=== PATIENT | female | born 1995 | race Caucasian/White ===

== ENCOUNTER 2017-08-13 00:29 | Emergency (ER) | payer BC ==
[~2017-08-13 00:29] MED LIST: ALB17R INH; IBU800 PO; LOR5/325 PO; MULT1CAP41 PO; NAP250 PO; RAN150 PO; RANI-324 PO
--- NOTE | 2017-08-13 00:33 | ER Report ---
History and Physical Time Seen By MD: 00:32 HPI/ROS CHIEF COMPLAINT: Heavy vaginal bleeding and abdominal cramping HISTORY OF PRESENT ILLNESS: 22-year-old female presents ambulatory to the ER after vaginal spotting for one week. She's had severe vaginal cramping and heavy clot passage over the last several hours. This prompted her to come to the ER for evaluation. Patient states she had a miscarriage 3 months ago in May. She is being followed by Dr. Panchal. She notes nausea but no vomiting. She denies dysuria, frequency or hematuria. REVIEW OF SYSTEMS: Respiratory: No cough, no dyspnea. Cardiovascular: No chest pain, no palpitations. Gastrointestinal: As above Musculoskeletal: No back pain. Allergies: Coded Allergies: insect venom (Verified Adverse Reaction, Intermediate, HIVES, 08/13/17) Home Meds Active Scripts Oxycodone Hcl/Acetaminophen (PERCOCET 5-325 MG TABLET) 1 Each Tablet, 1 EACH PO Q4-6H Y for PAIN, #12 Prov:GEORGETTE CASTRO DO 08/13/17 Promethazine Hcl (PROMETHAZINE HCL) 25 Mg Tablet, 25 MG PO Q4H Y for NAUSEA/ VOMITING, #14 TAB Prov:GEORGETTE CASTRO DO 08/13/17 Reported Medications Ranitidine Hcl (ZANTAC) 150 Mg Tablet, 150 MG PO BID, TAB 08/13/17 Reviewed Nurses Notes: Yes Old Medical Records Reviewed: Yes Hx Smoking: Yes Smoking Status: Current: Every Day Smoker Hx Substance Use Disorder: No Hx Alcohol Use: No Constitutional Vital Sign - Last 24 Hours 08/13/17 08/13/17 08/13/17 08/13/17 00:29 00:32 00:34 00:40 Temp 99.5 Pulse ??? 66 Resp 17 B/P (MAP) 136/89 (105) 136/89 137/103 (114) Pulse Ox 98 O2 Delivery Room Air 08/13/17 08/13/17 08/13/17 08/13/17 01:00 01:06 01:30 01:35 Pulse 66 B/P (MAP) 107/94 (98) 129/63 (85) O2 Flow Rate 1.0 08/13/17 08/13/17 02:00 02:05 Pulse 69 B/P (MAP) 126/69 (88) Pulse Ox 95 Physical Exam Vital signs stable, low-grade temp 99.5, pulse ox normal General Appearance: The patient is alert, has no immediate need for airway protection and no current signs of toxicity. Slightly pale appearing, skin warm and dry, mild distress HEENT: Pupils equal and round no injection. Oropharynx with mois mucous membranes, no erythema Respiratory: Chest is non tender, lungs are clear to auscultation. Cardiac: regular rate and rhythm Gastrointestinal: Abdomen is soft, mild suprapubic tenderness, no masses, bowel sounds normal. Musculoskeletal: Neck: Neck is supple and non tender. Extremities have full range of motion and are non tender. Skin: No rashes or lesions. DIFFERENTIAL DIAGNOSIS: After history and physical exam differential diagnosis was considered for vaginal bleeding including but not limited to ectopic , menses, miscarriage, and dysfunctional uterine bleeding. Medical Decision Making Data Points Result Diagram: 08/13/17 0038 08/13/17 0038 Laboratory Hematology Test 08/13/17 00:38 08/13/17 00:48 Red Blood Count 4.65 M/uL (4.17-5.56) Mean Corpuscular Volume 78.2 fL (80.0-96.0) Mean Corpuscular Hemoglobin 25.9 pg (26.0-33.0) Mean Corpuscular Hemoglobin Concent 33.1 g/dL (32.0-36.0) Red Cell Distribution Width 15.7 % (11.5-14.5) Mean Platelet Volume 7.9 fL (7.2-11.1) Neutrophils (%) (Auto) 47.3 % (39.4-72.5) Lymphocytes (%) (Auto) 42.7 % (17.6-49.6) Monocytes (%) (Auto) 7.7 % (4.1-12.4) Eosinophils (%) (Auto) 1.4 % (0.4-6.7) Basophils (%) (Auto) 0.9 % (0.3-1.4) Nucleated RBC Relative Count (auto) 0.0 /100WBC Neutrophils # (Auto) 5.7 K/uL (2.0-7.4) Lymphocytes # (Auto) 5.1 K/uL (1.3-3.6) Monocytes # (Auto) 0.9 K/uL (0.3-1.0) Eosinophils # (Auto) 0.2 K/uL (0.0-0.5) Basophils # (Auto) 0.1 K/uL (0.0-0.1) Nucleated RBC Absolute Count (auto) 0.00 K/uL Prothrombin Time 12.8 seconds (12.0-14.4) Prothromb Time International Ratio 0.96 Activated Partial Thromboplast Time 27 seconds (23-35) Sodium Level 145 mmol/L (137-145) Potassium Level 3.8 mmol/L (3.5-5.0) Chloride Level 108 mmol/L (98-107) Carbon Dioxide Level 21 mmol/L (22-31) Blood Urea Nitrogen 11 mg/dl (7-18) Creatinine 1.00 mg/dl (0.52-1.04) Glomerular Filtration Rate Calc > 60.0 Random Glucose 102 mg/dl (75-110) Calcium Level 9.5 mg/dl (8.4-10.2) Total Bilirubin 0.2 mg/dl (0.2-1.3) Aspartate Amino Transf (AST/SGOT) 25 U/L (0-35) Alanine Aminotransferase (ALT/SGPT) 25 U/L (0-56) Alkaline Phosphatase 87 U/L (0-126) Total Protein 7.4 gm/dl (6.3-8.2) Albumin 4.0 g/dl (3.5-5.0) Human Chorionic Gonadotropin, Qual Negative (NEGATIVE) Urine Color Yellow Urine Clarity Slightly-cloudy Urine pH 5.0 pH (4.8-9.5) Urine Specific [place] 1.016 Urine Protein 30 mg/dL (NEGATIVE) Urine Glucose (UA) Negative mg/dL (NEGATIVE) Urine Ketones Negative mg/dL (NEGATIVE) Urine Blood Large (NEGATIVE) Urine Nitrite Negative (NEGATIVE) Urine Bilirubin Negative (NEGATIVE) Urine Urobilinogen Negative mg/dL (0.2-1.9) Urine Leukocyte Esterase Negative (NEGATIVE) Urine RBC 496 /HPF (0-2/HPF) Urine WBC None /HPF (0-5/HPF) Urine Squamous Epithelial Cells Few /LPF (</=FEW) Urine Bacteria Negative /HPF (NONE-FEW) Urine Mucus Few /HPF (NONE-FEW) Chemistry Test 08/13/17 00:38 08/13/17 00:48 White Blood Count 12.0 k/uL (4.5-11.0) Red Blood Count 4.65 M/uL (4.17-5.56) Hemoglobin 12.0 g/dL (12.0-16.0) Hematocrit 36.4 % (34.0-47.0) Mean Corpuscular Volume 78.2 fL (80.0-96.0) Mean Corpuscular Hemoglobin 25.9 pg (26.0-33.0) Mean Corpuscular Hemoglobin Concent 33.1 g/dL (32.0-36.0) Red Cell Distribution Width 15.7 % (11.5-14.5) Platelet Count 361 K/uL (150-450) Mean Platelet Volume 7.9 fL (7.2-11.1) Neutrophils (%) (Auto) 47.3 % (39.4-72.5) Lymphocytes (%) (Auto) 42.7 % (17.6-49.6) Monocytes (%) (Auto) 7.7 % (4.1-12.4) Eosinophils (%) (Auto) 1.4 % (0.4-6.7) Basophils (%) (Auto) 0.9 % (0.3-1.4) Nucleated RBC Relative Count (auto) 0.0 /100WBC Neutrophils # (Auto) 5.7 K/uL (2.0-7.4) Lymphocytes # (Auto) 5.1 K/uL (1.3-3.6) Monocytes # (Auto) 0.9 K/uL (0.3-1.0) Eosinophils # (Auto) 0.2 K/uL (0.0-0.5) Basophils # (Auto) 0.1 K/uL (0.0-0.1) Nucleated RBC Absolute Count (auto) 0.00 K/uL Prothrombin Time 12.8 seconds (12.0-14.4) Prothromb Time International Ratio 0.96 Activated Partial Thromboplast Time 27 seconds (23-35) Glomerular Filtration Rate Calc > 60.0 Calcium Level 9.5 mg/dl (8.4-10.2) Total Bilirubin 0.2 mg/dl (0.2-1.3) Aspartate Amino Transf (AST/SGOT) 25 U/L (0-35) Alanine Aminotransferase (ALT/SGPT) 25 U/L (0-56) Alkaline Phosphatase 87 U/L (0-126) Total Protein 7.4 gm/dl (6.3-8.2) Albumin 4.0 g/dl (3.5-5.0) Human Chorionic Gonadotropin, Qual Negative (NEGATIVE) Urine Color Yellow Urine Clarity Slightly-cloudy Urine pH 5.0 pH (4.8-9.5) Urine Specific [place] 1.016 Urine Protein 30 mg/dL (NEGATIVE) Urine Glucose (UA) Negative mg/dL (NEGATIVE) Urine Ketones Negative mg/dL (NEGATIVE) Urine Blood Large (NEGATIVE) Urine Nitrite Negative (NEGATIVE) Urine Bilirubin Negative (NEGATIVE) Urine Urobilinogen Negative mg/dL (0.2-1.9) Urine Leukocyte Esterase Negative (NEGATIVE) Urine RBC 496 /HPF (0-2/HPF) Urine WBC None /HPF (0-5/HPF) Urine Squamous Epithelial Cells Few /LPF (</=FEW) Urine Bacteria Negative /HPF (NONE-FEW) Urine Mucus Few /HPF (NONE-FEW) Coagulation Test 08/13/17 00:38 Prothrombin Time 12.8 seconds Prothromb Time International Ratio 0.96 Activated Partial Thromboplast Time 27 seconds Urinalysis Test 08/13/17 00:48 Urine Color Yellow Urine Clarity Slightly-cloudy Urine pH 5.0 pH (4.8-9.5) Urine Specific [place] 1.016 Urine Protein 30 mg/dL (NEGATIVE) Urine Glucose (UA) Negative mg/dL (NEGATIVE) Urine Ketones Negative mg/dL (NEGATIVE) Urine Blood Large (NEGATIVE) Urine Nitrite Negative (NEGATIVE) Urine Bilirubin Negative (NEGATIVE) Urine Urobilinogen Negative mg/dL (0.2-1.9) Urine Leukocyte Esterase Negative (NEGATIVE) Urine RBC 496 /HPF (0-2/HPF) Urine WBC None /HPF (0-5/HPF) Urine Squamous Epithelial Cells Few /LPF (</=FEW) Urine Bacteria Negative /HPF (NONE-FEW) Urine Mucus Few /HPF (NONE-FEW) ED Course/Re-evaluation Clinical Indication for ER IV: Hydration, IV Access ED Course Patient was admitted to an examination room. H&P was done. The differential diagnoses was considered. On clinical examination. Patient having heavy vaginal spotting clots. She is unsure whether she is or not. She did sustain a miscarriage 3 months ago. She has been sexually active. Patient's treated with IV fluid hydration. Her vitals are stable. There is no tachycardia or hypotension. She is a low-grade fever. She denies dysuria. Her H&H is stable. Her white counts normal. Her test returns negative. Patient's medicated with fentanyl and Toradol for pain relief. She' ll be discharged home on Percocet and Phenergan. She is advised to follow-up with Dr. Panchal for evaluation and treatment of dysfunctional uterine bleeding. Decision to Disposition Date: Aug 13, 2017 Decision to Disposition Time: 01:18 Depart Departure Latest Vital Signs Vital Signs Date Time Temp Pulse Resp B/P (MAP) Pulse Ox O2 Delivery O2 Flow Rate FiO2 08/13/17 02:05 69 95 08/13/17 02:00 126/69 (88) 08/13/17 01:06 1.0 08/13/17 00:34 99.5 17 Room Air Impression: Primary Impression: Dysfunctional uterine bleeding Condition: Improved Disposition: HOME OR SELF-CARE New Scripts Oxycodone Hcl/Acetaminophen (PERCOCET 5-325 MG TABLET) 1 Each Tablet 1 EACH PO Q4-6H Y for PAIN, #12 Prov: GEORGETTE CASTRO DO 08/13/17 Promethazine Hcl (PROMETHAZINE HCL) 25 Mg Tablet 25 MG PO Q4H Y for NAUSEA/VOMITING, #14 TAB Prov: GEORGETTE CASTRO DO 08/13/17 Patient Instructions: Dysfunctional Uterine Bleeding (ED) Additional Instructions: Take ibuprofen 200 mg 3 tablets 3 times a day with food Follow-up with [facility] [employer] Dr Panchal within one week GEORGETTE CASTRO DO Aug 13, 2017 00:33
[2017-08-13] MEDS ORDERED: NS(*) 0.9% 1000 ML BAG 1,000 ML IV ONE (00:42)
[2017-08-13] MEDS ORDERED: ONDANSETRON 4 MG/2 ML VIAL IVP ONE (00:45)
[2017-08-13] MEDS ORDERED: fentaNYL CITR 100 MCG/2 ML AMP IVP ONE ×2 (00:45→01:10)
[2017-08-13 00:53] LABS: PLATELET COUNT, AUTOMATED 361 K/uL (150-450)
[2017-08-13] MEDS ORDERED: RANI-324 PO (00:54)
[2017-08-13 00:59] LABS: INR 0.96
[2017-08-13] MEDS ORDERED: PROM-110 PO (01:21)
[2017-08-13] MEDS ORDERED: OXYC-865 PO (01:21)
[2017-08-13] MEDS ORDERED: PROMETHAZINE HCL 25 MG TAB TH 2 TAB/BOTTLE PO ONE (01:30)
[2017-08-13] MEDS ORDERED: oxyCODONE/ACETAMIN 5/325MG TH 2 TAB/BOTTLE PO ONE (01:30)
[2017-08-13] MEDS ORDERED: KETOROLAC 30 MG/ML VIAL IVP ONE (01:45)
[2017-08-13 02:00] VITALS: BP 126/69
== END 2017-08-13 02:12 | disposition home or self-care (01) ==
LOC: ER 00:42
DX: N93.8 Other specified abnormal uterine and vaginal bleeding (principal)
CPT/HCPCS: 81001; 84703; 85025; 85610; 85730; 86850; 86900; 86901; 99284; J1885; J2405; J3010; J7030; 82040; 82247; 82310; 82374; 82435; 82565; 82947; 84075; 84132; 84155; 84295; 84450; 84460; 84520; 96361; 96374; 96375

== ENCOUNTER 2017-10-26 15:11 | Emergency (ER) | payer BC ==
[~2017-10-26 15:11] MED LIST changes: +OXYC-865 PO; +PROM-110 PO; -RANI-324 PO; +RANI-366 PO
[2017-10-26] MEDS ORDERED: PREN-127 PO (15:21)
[2017-10-26] MEDS ORDERED: DOXY25TA19 (15:21)
[2017-10-26] MEDS ORDERED: PYRI200T (15:21)
[2017-10-26] MEDS ORDERED: NS(*) 0.9% 1000 ML BAG 1,000 ML IV ONE ×2 (15:30→16:25)
[2017-10-26] MEDS ORDERED: ONDANSETRON 4 MG/2 ML VIAL IVP ONE (15:35)
[2017-10-26 15:40] LABS: PLATELET COUNT, AUTOMATED 397 K/uL (150-450)
--- NOTE | 2017-10-26 15:45 | ER Report ---
History and Physical Time Seen By MD: 15:25 Hx. of Stated Complaint: PT IS LUBNA IS 7 WEEKS GEST. STARTED VOMITING ABOUT 7 DAYS AGO, UNABLE TO KEEP FLUIDS DOWN. DX WITH HYPEREMESIS GRAVIDARUM AT CLINIC AND SENT TO ER FOR HYDRATION HPI/ROS CHIEF COMPLAINT: Hyperemesis HISTORY OF PRESENT ILLNESS: 22-year-old female G2 para 06 week AB spontaneous comes emergency Department 7 weeks currently gravid with hyperemesis gravidarum his last time she was able to hold things down without emesis was 34 days ago she states that [facility] unable to obtain IV for dehydration and rehydration so comes emergency Department abdominal pain or vaginal bleeding or discharge no additional complaints noted REVIEW OF SYSTEMS: Respiratory: No cough, no dyspnea. Cardiovascular: No chest pain, no palpitations. Gastrointestinal: Vomiting no abdominal pain Musculoskeletal: No back pain. Remainder of the 14 system rev: Yes Allergies: Coded Allergies: insect venom (Verified Adverse Reaction, Intermediate, HIVES, 10/26/17) Home Meds Reported Medications Pyridoxine HCl (Vitamin B6) (B-6) 200 Mg Tablet.er 10/26/17 Doxylamine Succinate (Unisom) 25 Mg Tablet 10/26/17 Vits W-Ca,Fe,Fa(<1MG) ( VITAMINS) 1 Each Tablet, 1 EACH PO DAILY, TAB 10/26/17 Ranitidine Hcl (ZANTAC) 150 Mg Tablet, 150 MG PO BID, TAB 08/13/17 Discontinued Scripts Oxycodone Hcl/Acetaminophen (PERCOCET 5-325 MG TABLET) 1 Each Tablet, 1 EACH PO Q4-6H Y for PAIN, #12 Prov:GEORGETTE CASTRO DO 08/13/17 Promethazine Hcl (PROMETHAZINE HCL) 25 Mg Tablet, 25 MG PO Q4H Y for NAUSEA/ VOMITING, #14 TAB Prov:GEORGETTE CASTRO DO 08/13/17 Reviewed Nurses Notes: Yes Old Medical Records Reviewed: Yes Hx Smoking: Yes Smoking Status: Current: Every Day Smoker Hx Substance Use Disorder: No Hx Alcohol Use: No Constitutional Vital Sign - Last 24 Hours 10/26/17 15:14 Temp 97.8 Pulse 90 Resp 20 B/P (MAP) 136/82 Pulse Ox 97 O2 Delivery Room Air Physical Exam General Appearance: The patient is alert, has no immediate need for airway protection and no current signs of toxicity. [ ] Eyes: Pupils equal and round no injection. Respiratory: Chest is non tender, lungs are clear to auscultation. Cardiac: regular rate and rhythm [ ] Gastrointestinal: Abdomen is soft and non tender, no masses, bowel sounds normal. Musculoskeletal: Neck: Neck is supple and non tender. Extremities have full range of motion and are non tender. Skin: No rashes or lesions. [ ] DIFFERENTIAL DIAGNOSIS: After history and physical exam differential diagnosis was considered for hyperemesis gravidarum Medical Decision Making Data Points Result Diagram: 10/26/17 1529 10/26/17 1529 Laboratory Hematology Test 10/26/17 15:29 10/26/17 16:15 Red Blood Count 5.13 M/uL (4.17-5.56) Mean Corpuscular Volume 73.1 fL (80.0-96.0) Mean Corpuscular Hemoglobin 23.5 pg (26.0-33.0) Mean Corpuscular Hemoglobin Concent 32.1 g/dL (32.0-36.0) Red Cell Distribution Width 16.4 % (11.5-14.5) Mean Platelet Volume 7.6 fL (7.2-11.1) Neutrophils (%) (Auto) 71.7 % (39.4-72.5) Lymphocytes (%) (Auto) 21.6 % (17.6-49.6) Monocytes (%) (Auto) 6.1 % (4.1-12.4) Eosinophils (%) (Auto) 0.2 % (0.4-6.7) Basophils (%) (Auto) 0.4 % (0.3-1.4) Nucleated RBC Relative Count (auto) 0.1 /100WBC Neutrophils # (Auto) 8.6 K/uL (2.0-7.4) Lymphocytes # (Auto) 2.6 K/uL (1.3-3.6) Monocytes # (Auto) 0.7 K/uL (0.3-1.0) Eosinophils # (Auto) 0.0 K/uL (0.0-0.5) Basophils # (Auto) 0.1 K/uL (0.0-0.1) Nucleated RBC Absolute Count (auto) 0.01 K/uL Peripheral Blood Smear Y/N Sodium Level 139 mmol/L (137-145) Potassium Level 3.6 mmol/L (3.5-5.0) Chloride Level 102 mmol/L (98-107) Carbon Dioxide Level 23 mmol/L (22-31) Blood Urea Nitrogen 10 mg/dl (7-18) Creatinine 0.80 mg/dl (0.52-1.04) Glomerular Filtration Rate Calc > 60.0 Random Glucose 80 mg/dl (75-110) Calcium Level 9.9 mg/dl (8.4-10.2) Total Bilirubin 0.5 mg/dl (0.2-1.3) Aspartate Amino Transf (AST/SGOT) 22 U/L (0-35) Alanine Aminotransferase (ALT/SGPT) 25 U/L (0-56) Alkaline Phosphatase 87 U/L (0-126) Total Protein 8.1 g/dl (6.3-8.2) Albumin 4.4 g/dl (3.5-5.0) Human Chorionic Gonadotropin, Quant 855624 mIU/ml Urine Color [place] Urine Clarity Cloudy Urine pH 5.0 pH (4.8-9.5) Urine Specific [place] 1.030 Urine Protein 30 mg/dL (NEGATIVE) Urine Glucose (UA) Negative mg/dL (NEGATIVE) Urine Ketones 80 mg/dL (NEGATIVE) Urine Blood Small (NEGATIVE) Urine Nitrite Negative (NEGATIVE) Urine Bilirubin Negative (NEGATIVE) Urine Urobilinogen 2.0 mg/dL (0.2-1.9) Urine Leukocyte Esterase Large (NEGATIVE) Urine RBC 2 /HPF (0-2/HPF) Urine WBC 13 /HPF (0-5/HPF) Urine Squamous Epithelial Cells Many /LPF (</=FEW) Urine Transitional Epithelial Cells Few /LPF (NONE-FEW) Urine Amorphous Crystals Few /HPF Urine Bacteria Negative /HPF (NONE-FEW) Urine Mucus Few /HPF (NONE-FEW) Chemistry Test 10/26/17 15:29 10/26/17 16:15 White Blood Count 12.0 k/uL (4.5-11.0) Red Blood Count 5.13 M/uL (4.17-5.56) Hemoglobin 12.0 g/dL (12.0-16.0) Hematocrit 37.5 % (34.0-47.0) Mean Corpuscular Volume 73.1 fL (80.0-96.0) Mean Corpuscular Hemoglobin 23.5 pg (26.0-33.0) Mean Corpuscular Hemoglobin Concent 32.1 g/dL (32.0-36.0) Red Cell Distribution Width 16.4 % (11.5-14.5) Platelet Count 397 K/uL (150-450) Mean Platelet Volume 7.6 fL (7.2-11.1) Neutrophils (%) (Auto) 71.7 % (39.4-72.5) Lymphocytes (%) (Auto) 21.6 % (17.6-49.6) Monocytes (%) (Auto) 6.1 % (4.1-12.4) Eosinophils (%) (Auto) 0.2 % (0.4-6.7) Basophils (%) (Auto) 0.4 % (0.3-1.4) Nucleated RBC Relative Count (auto) 0.1 /100WBC Neutrophils # (Auto) 8.6 K/uL (2.0-7.4) Lymphocytes # (Auto) 2.6 K/uL (1.3-3.6) Monocytes # (Auto) 0.7 K/uL (0.3-1.0) Eosinophils # (Auto) 0.0 K/uL (0.0-0.5) Basophils # (Auto) 0.1 K/uL (0.0-0.1) Nucleated RBC Absolute Count (auto) 0.01 K/uL Peripheral Blood Smear Y/N Glomerular Filtration Rate Calc > 60.0 Calcium Level 9.9 mg/dl (8.4-10.2) Total Bilirubin 0.5 mg/dl (0.2-1.3) Aspartate Amino Transf (AST/SGOT) 22 U/L (0-35) Alanine Aminotransferase (ALT/SGPT) 25 U/L (0-56) Alkaline Phosphatase 87 U/L (0-126) Total Protein 8.1 g/dl (6.3-8.2) Albumin 4.4 g/dl (3.5-5.0) Human Chorionic Gonadotropin, Quant [id number] mIU/ml Urine Color [place] Urine Clarity Cloudy Urine pH 5.0 pH (4.8-9.5) Urine Specific [place] 1.030 Urine Protein 30 mg/dL (NEGATIVE) Urine Glucose (UA) Negative mg/dL (NEGATIVE) Urine Ketones 80 mg/dL (NEGATIVE) Urine Blood Small (NEGATIVE) Urine Nitrite Negative (NEGATIVE) Urine Bilirubin Negative (NEGATIVE) Urine Urobilinogen 2.0 mg/dL (0.2-1.9) Urine Leukocyte Esterase Large (NEGATIVE) Urine RBC 2 /HPF (0-2/HPF) Urine WBC 13 /HPF (0-5/HPF) Urine Squamous Epithelial Cells Many /LPF (</=FEW) Urine Transitional Epithelial Cells Few /LPF (NONE-FEW) Urine Amorphous Crystals Few /HPF Urine Bacteria Negative /HPF (NONE-FEW) Urine Mucus Few /HPF (NONE-FEW) Urinalysis Test 10/26/17 16:15 Urine Color [place] Urine Clarity Cloudy Urine pH 5.0 pH (4.8-9.5) Urine Specific [place] 1.030 Urine Protein 30 mg/dL (NEGATIVE) Urine Glucose (UA) Negative mg/dL (NEGATIVE) Urine Ketones 80 mg/dL (NEGATIVE) Urine Blood Small (NEGATIVE) Urine Nitrite Negative (NEGATIVE) Urine Bilirubin Negative (NEGATIVE) Urine Urobilinogen 2.0 mg/dL (0.2-1.9) Urine Leukocyte Esterase Large (NEGATIVE) Urine RBC 2 /HPF (0-2/HPF) Urine WBC 13 /HPF (0-5/HPF) Urine Squamous Epithelial Cells Many /LPF (</=FEW) Urine Transitional Epithelial Cells Few /LPF (NONE-FEW) Urine Amorphous Crystals Few /HPF Urine Bacteria Negative /HPF (NONE-FEW) Urine Mucus Few /HPF (NONE-FEW) ED Course/Re-evaluation ED Course Debra duenas 22-year-old female comes emergency room today with a complaint of hyperemesis gravidarum urinalysis does confirm elevated leukoesterase consistent with a probable UTI Dena Grissom give her 2 L of fluid will not start antiemetics as we done by her primary [employer] physician patient feels significantly better we'll follow up with primary accordingly Decision to Disposition Date: Oct 26, 2017 Decision to Disposition Time: 16:34 Depart Departure Latest Vital Signs Vital Signs Date Time Temp Pulse Resp B/P (MAP) Pulse Ox O2 Delivery O2 Flow Rate FiO2 10/26/17 15:14 97.8 90 20 136/82 97 Room Air Impression: Primary Impression: Hyperemesis gravidarum Additional Impression: UTI (urinary tract infection) Condition: Improved Disposition: HOME OR SELF-CARE Referrals: ELIAS RAMIREZ MD 5 Days New Scripts Nitrofurantoin Monohyd/M-Cryst (MACROBID 100 MG CAPSULE) 100 Mg Capsule 100 MG PO BID for 7 Days, #14 CAPSULE Prov: SAMIRA TERAN MD 10/26/17 Patient Instructions: Hyperemesis Gravidarum (DC), Urinary Tract Infection in (ED), Urinary Tract Infection in Women (DC) Problem Qualifiers SAMIRA TERAN MD Oct 26, 2017 15:45
[2017-10-26] MEDS ORDERED: NITR-105 PO (16:35)
[2017-10-26 17:00] VITALS: BP 108/69
== END 2017-10-26 17:15 | disposition home or self-care (01) ==
LOC: ER 15:12
DX: O21.0 Mild hyperemesis gravidarum (principal); O23.41 Unspecified infection of urinary tract in pregnancy, first trimester; Z3A.01 Less than 8 weeks gestation of pregnancy
CPT/HCPCS: 81001; 84702; 85025; 96361; 96374; 99284; J2405; J7030; 82040; 82247; 82310; 82374; 82435; 82565; 82947; 84075; 84132; 84155; 84295; 84450; 84460; 84520

== ENCOUNTER → 2018-05-12 | Outpatient (REF) | payer BC ==
[~2018-05-12] MED LIST changes: +DOXY25TA19; +NITR-105 PO; +PREN-127 PO; +PYRI200T
== END ==
LOC: ZZSENDIN 14:54
PROVIDERS: ATTEND Nurse Practitioner Family
DX: O42.90 Premature rupture of membranes, unspecified as to length of time between rupture and onset of labor, unspecified weeks of gestation (principal)
CPT/HCPCS: 84112

== ENCOUNTER 2018-06-09 14:50 | Inpatient (IN) | payer OTHER, BC ==
[~2018-06-09] VITALS: Ht 167.6 cm; Wt 121.1 kg
[2018-06-13] MEDS ORDERED: FAMOTIDINE(*) 20MG/50ML PREMIX 50 ML IVPB PRN (19:28)
[2018-06-13] MEDS ORDERED: METOCLOPRAMIDE 10 MG/2 ML SDV IVP PRN (19:30)
[2018-06-13] MEDS ORDERED: TERBUTALINE SULF 1 MG/ML VIAL SUBQ PRN (19:30)
[2018-06-13] MEDS ORDERED: cefOXitin/DEX(*) 2GM/50ML PREM 50 ML IVPB PRN (19:30)
[2018-06-13] MEDS ORDERED: LIDOCAINE/SOD BICARB 8.4% SYR SC PRN (19:30)
[2018-06-13] MEDS ORDERED: LIDOCAINE 1% LOCAL 300 MG/30ML INJ PRN (19:30)
[2018-06-13] MEDS ORDERED: DINOPROSTONE 10 MG INSERT PV ONE (19:30)
[2018-06-13 21:16] LABS: PLATELET COUNT, AUTOMATED 268 K/uL (150-450)
[2018-06-13] MEDS ORDERED: ZOLPIDEM TARTRATE 5 MG TAB PO ONE (21:20)
[2018-06-13] MEDS ORDERED: ONDANSETRON 4 MG/2 ML VIAL IVP PRN (21:20)
[2018-06-13] MEDS ORDERED: CALCIUM CARBONATE 500 MG CHEW PO ONE (21:20)
[2018-06-13] MEDS ORDERED: CALCIUM CARBONATE 500 MG CHEW PO PRN (21:30)
[2018-06-13] MEDS ORDERED: ZOLPIDEM TARTRATE 5 MG TAB PO PRN (21:30)
[2018-06-13] MEDS: ACETAMINOPHEN 500 MG TAB PO PRN (21:33)
[2018-06-13 21:35] VITALS: BP 125/91; Ht 167.6 cm; Wt 121.1 kg
[2018-06-13] MEDS ORDERED: OMEP-218 PO (23:13)
[2018-06-14] MEDS: ACETAMINOPHEN 500 MG TAB PO PRN (04:36)
[2018-06-14] MEDS ORDERED: OXYTOCIN 30 UNIT/D5LR 500 ML 500 ML IV SCH (08:30)
[2018-06-14] MEDS ORDERED: LIDO/EPI 2% MPF 1:200,000 20ML EPI PRN (08:35)
[2018-06-14] MEDS ORDERED: BUPIVACAINE 0.5% INJ 30ML VIAL EPI PRN (08:35)
[2018-06-14] MEDS ORDERED: fentaNYL CITR 100 MCG/2 ML AMP IT PRN (08:35)
[2018-06-14] MEDS ORDERED: LIDOCAINE/PF 2% 200MG/10ML AMP 200 MG/10 ML AMPUL EPI PRN (08:35)
[2018-06-14] MEDS ORDERED: FENTANYL/ROPIVACAINE 100 ML BAG EPI PRN (08:35)
[2018-06-14] MEDS ORDERED: BUPIVACAINE 0.25% MPF INJ EPI PRN (08:35)
[2018-06-14] MEDS: LR(*) 1000 ML BAG 1,000 ML IV PRN ×2 (09:01→12:58)
[2018-06-14] MEDS: fentaNYL CITR 100 MCG/2 ML AMP IVP PRN ×2 (09:02→12:14)
[2018-06-14] MEDS ORDERED: EPIDURAL KEYS XX PRN (12:00)
[2018-06-14] MEDS ORDERED: ePHEDrine 25 MG/5 ML DISP.SYR IVP ONE (12:07)
--- NOTE | 2018-06-14 13:48 | Anesthesia OB Pre-Anes Eval ---
History of Present Illness Anesthesia Start Date: Jun 14, 2018 Anesthesia Start Time: 12:25 OB Anesthesia Diagnosis: induction - medical EDC: Jun 09, 2018 : 2 Para: 0 Vital Signs: Vital Signs 06/13/18 21:35 Pulse 90 Resp 20 B/P (MAP) 125/91 (102) Pulse Ox 97 O2 Delivery Room Air Pain Ratin Result Diagram: 06/13/18 2102 Height (Inches): 66.00 Weight (Pounds): 267 BMI (kg/m2): 43.10 Past Medical History Medical History: obesity, other (GERD) Surgical History: noncontributory Attended Childbirth Classes?: No Hx Anesthesia Reactions: No Hx Family Anesthesia Reaction: No Current Medications: pitocin, pain medication Home Meds Reported Medications Omeprazole Magnesium (PRILOSEC OTC) 20 Mg Tablet.dr, 1 TAB PO QDAY, TAB 06/13/18 Vits W-Ca,Fe,Fa(<1MG) ( VITAMINS) 1 Each Tablet, 1 EACH PO DAILY, TAB 10/26/17 Ranitidine Hcl (ZANTAC) 150 Mg Tablet, 150 MG PO BID, TAB 08/13/17 Discontinued Reported Medications Pyridoxine HCl (Vitamin B6) (B-6) 200 Mg Tablet.er 10/26/17 Doxylamine Succinate (Unisom) 25 Mg Tablet 10/26/17 Discontinued Scripts Nitrofurantoin Monohyd/M-Cryst (MACROBID 100 MG CAPSULE) 100 Mg Capsule, 100 MG PO BID for 7 Days, #14 CAPSULE Prov:SAMIRA TERAN MD 10/26/17 Allergies: Coded Allergies: insect venom (Verified Adverse Reaction, Intermediate, HIVES, 10/26/17) Anesthesia OB ROS Neurological: No migraines/headaches, No seizures, No neuropathy, No other ENT: Denies Tooth caps, Denies Loose teeth, Denies Chipped teeth, Denies Dentures, Denies Bridges, Denies Retainers, Denies Veneers, Denies Implants, Denies Tongue ring, Denies Other Pulmonary: No asthma, No smoker (pks/day/yrs), No other Airway Class: ll Cardiovascular ROS: No edema, No arrhythmia, No other GI ROS: clear liquids Last Solids Date: Jun 14, 2018 Last Solids Time: 08:30 ROS: Other (GERD) Endocrine ROS: other (M.Obesity) Musculoskeletal ROS: No low back pain, No low back injury, No scoliosis, No other ASA Classification: 3 Assessment and Plan Anesthesia Plan: RENARD PARIKH CRNA Jun 14, 2018 13:48
--- NOTE | 2018-06-14 13:51 | Procedure Note ---
Anesthetic Placement Note Anesthesia Plan: CSE Permit for Anesthesia Signed: Yes Anesthesia Technique: Patient Sitting Anesthesia Prep: Chlorhexidine Interspace: L 2-3 Local Anesthetic: 1% Lidocaine, 25 Gauge Needle Amount Local - cc's: 3 Anesthesia Needle: 17g Touhy/Schliff Anesthesia Attempts: 1 Loss of Resistance: Normal Saline Depth of PAT (cm): 6 Epidural Needle Placement: No CSF, No Blood, No Parasthesia Intrathecal Needle: 27 Gauge Pencan Cerebral Spinal Fluid: Yes, Clear Catheter Insertion (cm): 4 (10 cm @skin) Catheter Type: Bailey - Spring Wound Epidural Dressing: Tegaderm, Tape Anesthesia Tray: Lot Number ([id number]), Expiration Date (03/27), Reference Number ([id number]) Anesthesia Medications: Intrathecal Dose: mcg Fentanyl (10), mg Spinal Bupivicaine (2.5), Time (1239) Epidural Test Dose: 1.5 Lido/Epi (1:200,000), Dose - mL (3), Time (1241), Negative Epidural Infusion: 0.2% Ropivicaine, With Fentanyl 2mcg/ml, Start Time: (1315) Epidural Pump Setting: Bolus Dose - mL (8), Lockout - Minutes (20), Maintenance Rate - mL/hr (6), Maximum per Hour - mL (30) Complications: None RENARD FOX CRNA Jun 14, 2018 13:51
--- NOTE | 2018-06-14 14:58 | History & Physical ---
History of Present Illness Age of Patient: 23 : 2 Para or TPAL: 0 Estimated Gestational Age: 40.5 Chief Complaint IOL History of Present Illness Presents for scheduled IOl due to post dates. uncomplicated. Past Medical, Surgical, Family and Obstetric Histories reviewed. Please see ACOG chart. History Allergies: Coded Allergies: insect venom (Verified Adverse Reaction, Intermediate, HIVES, 10/26/17) Med Rec Home Meds Reported Medications Omeprazole Magnesium (PRILOSEC OTC) 20 Mg Tablet.dr, 1 TAB PO QDAY, TAB 06/13/18 Vits W-Ca,Fe,Fa(<1MG) ( VITAMINS) 1 Each Tablet, 1 EACH PO DAILY, TAB 10/26/17 Ranitidine Hcl (ZANTAC) 150 Mg Tablet, 150 MG PO BID, TAB 08/13/17 Discontinued Reported Medications Pyridoxine HCl (Vitamin B6) (B-6) 200 Mg Tablet.er 10/26/17 Doxylamine Succinate (Unisom) 25 Mg Tablet 10/26/17 Discontinued Scripts Nitrofurantoin Monohyd/M-Cryst (MACROBID 100 MG CAPSULE) 100 Mg Capsule, 100 MG PO BID for 7 Days, #14 CAPSULE Prov:SAMIRA TERAN MD 10/26/17 Review of Systems All Systems Reviewed/Normal: Yes, Except as Noted Exam General Exam Vital Signs Vital Signs Date Time Temp Pulse Resp B/P (MAP) Pulse Ox O2 Delivery O2 Flow Rate FiO2 06/13/18 21:35 90 20 125/91 (102) 97 Room Air General Apperance: Alert/Awake/No Acute Distress Neuro: No Gross deficits Eyes: Normal Extraocular Movement & Vison Cardiovascular: Regular Rate and Rhythm Respiratory: No Respiratory Distress Abdomen: Soft, Non-Tender, Non-Distended, Gravid - Non-Tender Integumentary: Skin Intact without Lesions or Rash Psychological: Alert & Oriented X3, Appropriate Mood & Affect Cervical Dialation: 3 Cervical Effacement (%): 80 Cervical Consistency: Soft Cervical Position: Anterior Fetus Heart Tone Variabilty: Moderate FHT Accelerations: 15X15 FHT Category: I Medical Decision Making Data Points Result Diagram: 06/13/182101 VTE Prophylasis: Adult Pharmacological Contraindicati: Pt at Low Risk for VTE Mechanical Contraindications: Pt at Low Risk for VTE Assessment and Plan [facility] BIOLOGY Plan: Routine Labor/Induct Care Problems: (1) 40 weeks gestation of Assessment & Plan: Routine Cervidil IOL. Planning on epidural and . ELIAS RAMIREZ MD Jun 14, 2018 14:58
[2018-06-14] MEDS ORDERED: DLR(*) 1000 ML BAG 1,000 ML IV SCH (15:16)
--- NOTE | 2018-06-14 18:48 | Anesthesia Progress Note ---
Progress/Maintenance Anesthesia Note Date: Jun 14, 2018 Anesthesia Note Time: 16:00 Pain Intensity: 0 Pump: On Pump Rate (ML/HR): 6 Motor Level: Bending Knees-Bilateral, Other (R more numb than L) Dilatation: 6 Position: Left, Tilt RENARD FOX CRNA Jun 14, 2018 18:48
[2018-06-14] MEDS ORDERED: CARBOPROST TROMETHAM 250MCG/ML IM ONLY ONE (19:40)
[2018-06-14] MEDS ORDERED: METHYLERGONOVINE MAL 0.2MG/ML ONE (19:40)
--- NOTE | 2018-06-14 19:59 | Anesthesia Progress Note ---
Assessment and Plan Anesthesia Plan: CSE Anesthesia Stop Day: Jun 14, 2018 Anesthesia Stop Time: 19:55 RENARD FOX CRNA Jun 14, 2018 19:59
[2018-06-14] MEDS ORDERED: LANOLIN OINT 7 GM TUBE TP PRN (20:05)
[2018-06-14] MEDS ORDERED: HYDROCORTISONE 2.5% CR 30GM TB PR PRN (20:05)
[2018-06-14] MEDS ORDERED: GLYCERIN/WITCH HAZEL LEAF 1 PK TOP PRN (20:05)
[2018-06-14] MEDS ORDERED: ACETAMINOPHEN 325 MG TAB PO PRN (20:05)
[2018-06-14] MEDS ORDERED: MAGNESIUM HYDROXIDE* 30ML UDCP PO PRN (20:05)
--- NOTE | 2018-06-14 20:05 | OB Delivery Note ---
Delivery Note Vaginal Delivery Type: Spont. Vaginal Delivery Delivery Date: Jun 14, 2018 Delivery Time: 19:44 Estimated Gestational Age(wks): 40.5 Delivery Anesthesia: Epidural Sex: Female Lyndora Apgars: 1 Minute (7), 5 Minute (8) Repair Needed: Laceration, 1st Degree Estimated Blood Loss: 300 Notes: Admitted for IOL at term, post her due date and for cervical ripening. 1 cm on admission and Cervidil placed over night. 2 cm by AM and 4 cm by 1354. AROM at 1200 noon and Epidural placed at 1240. Progressed to 9.5 by 1722 and complete by 1822. Pushing effectively and brought presenting part in NETTIE position to . Perineum stabilized and delivered over first degree laceration. Placenta delivered spontaneous and intact. Repair with 2-0 Chromic without difficulty. No complications. Pattern Marker in Attendence: No Copies to: ELIAS RAMIREZ MD ; ELIAS RAMIREZ MD Jun 14, 2018 20:04
[2018-06-14 20:49] VITALS: BP 135/62
[2018-06-14] MEDS: DOCUSATE CALCIUM 240 MG CAP PO SCH (21:12)
[2018-06-14] MEDS: IBUPROFEN 800 MG TAB PO SCH (21:12)
[2018-06-14] MEDS: BENZOCAINE 20% 60 ML BTL TP PRN (21:13)
[2018-06-14] MEDS ORDERED: CALCIUM CARBONATE 500 MG CHEW PO PRN (21:25)
[2018-06-14 22:03] VITALS: BP 144/80
[2018-06-14 22:13] VITALS: BP 147/81
[2018-06-14 22:46] VITALS: BP 127/61
[2018-06-15] MEDS: APAP/HYDROCODONE 325/5 TAB PO PRN ×2 (00:32→08:36)
[2018-06-15 02:52] VITALS: BP 133/76
[2018-06-15] MEDS: IBUPROFEN 800 MG TAB PO SCH ×3 (04:47→20:30)
--- NOTE | 2018-06-15 08:12 | OB/GYN Progress Note ---
OB Subjective Progress Notes Subjective Doing well. Pain controlled and bleeding light. Voiding well. GI: NEG Nausea : Voiding Well Pain: Mild OB Objective Physical Exam Vital Signs Date Time Temp Pulse Resp B/P (MAP) Pulse Ox O2 Delivery O2 Flow Rate FiO2 06/15/18 02:55 Room Air 06/15/18 02:52 98.3 74 18 133/76 (95) 93 Intake and Output 06/15/18 07:00 Intake Total 1050 ml Output Total 770 ml Balance 280 ml Intake IV Total 1050 ml Output Urine Total 770 ml # Voids 2 General Appearance: Alert/Awake/No Acute Distress Neurological: No Gross deficits Eyes: Normal Extraocular Movement & Vison Cardiovascular: Normal Rhythm & Peripheral Pulses, Regular Rate and Rhythm Respiratory: No Respiratory Distress, Clear to Auscultation Abdomen: Soft, Non-Tender, Non-Distended Integumentary: Skin Intact without Lesions or Rash Psychological: Alert & Oriented X3, Appropriate Mood & Affect Result Diagram: 06/15/18 0651 Assessment and Plan [employer] ANALYST Plan: Routine Post- Care Problems: (1) 40 weeks gestation of ELIAS RAMIREZ MD Jun 15, 2018 08:12
[2018-06-15] MEDS: DOCUSATE CALCIUM 240 MG CAP PO SCH ×2 (08:35→20:30)
[2018-06-15 08:38] VITALS: BP 147/65
[2018-06-15 12:01] VITALS: BP 138/92
--- NOTE | 2018-06-15 13:55 | Anesthesia Post Eval Note ---
Anesthesia Post Eval Note Vital Signs 06/15/18 12:01 Temp 98.7 Pulse 83 Resp 16 B/P (MAP) 138/92 (107) Pulse Ox 95 O2 Delivery Room Air Pt able to participate in Eval: Yes Cardiovascular Status: Satisfactory Respiratory Status: Satisfactory Pain Managment: Satisfactory PO Nausea/Vomiting: Satisfactory Temperature Management: Satisfactory Mental Status: Satisfactory, Alert, Oriented X3 Post-Op Hydration Status: Satisfactory, Tolerating PO Well, Voiding w/o Difficulty Anesthesia Type: RENARD PARIKH CRNA Jun 15, 2018 13:55
[2018-06-15 16:17] VITALS: BP 148/79
[2018-06-15 19:10] VITALS: BP 128/81
[2018-06-15 23:20] VITALS: BP 130/83
[2018-06-16 03:15] VITALS: BP 137/65
[2018-06-16] MEDS: IBUPROFEN 800 MG TAB PO SCH ×2 (05:39→12:30)
[2018-06-16] MEDS ORDERED: INFLUENZA VIRUS VAC 0.5ML SYR IM ONLY ONE (09:00)
[2018-06-16] MEDS ORDERED: DIPHTH/TETANUS/ACEL. PERTUSSIS IM ONLY ONE (09:00)
[2018-06-16] MEDS ORDERED: MEASLES,MUMP,RUBELLA VAC 0.5ML SUBQ ONE (09:00)
[2018-06-16 09:35] VITALS: BP 130/89
[2018-06-16] MEDS: DOCUSATE CALCIUM 240 MG CAP PO SCH (09:35)
--- NOTE | 2018-06-16 10:19 | OB/GYN Progress Note ---
OB Subjective Progress Notes Subjective 23 yo female PP day #2 s/p . Doing well, tolerating diet and activity. Voiding well. Vaginal bleeding light and slowing. GI: POS Flatus; NEG Nausea, NEG Vomiting : Voiding Well, Vaginal Bleeding, Moderate Pain: Moderate Neurological: No Headache OB Objective Physical Exam Vital Signs Date Time Temp Pulse Resp B/P (MAP) Pulse Ox O2 Delivery O2 Flow Rate FiO2 06/16/18 09:35 98.5 79 16 130/89 (103) 94 Room Air Intake and Output 06/16/18 07:00 Intake Total 1060 ml Balance 1060 ml Intake Oral 360 ml IV Total 700 ml # Voids 2 General Appearance: Alert/Awake/No Acute Distress Neurological: No Gross deficits Eyes: Normal Extraocular Movement & Vison Cardiovascular: Normal Rhythm & Peripheral Pulses, Regular Rate and Rhythm Respiratory: No Respiratory Distress, Clear to Auscultation Abdomen: Soft, Non-Tender, Non-Distended, Fundus Firm, Non-Tender Integumentary: Skin Intact without Lesions or Rash Psychological: Alert & Oriented X3, Appropriate Mood & Affect Result Diagram: 06/15/18 0651 Assessment and Plan Problems: (1) 40 weeks gestation of (2) state Assessment & Plan: Doing well . Discharge home today, follow-up in the office in 6 weeks. Sooner as needed. JEMMA VARELA Jun 16, 2018 10:19
[2018-06-16] MEDS ORDERED: IBUP800T37 PO (10:22)
[2018-06-16] MEDS ORDERED: DOCU-416 PO (10:22)
[2018-06-16] MEDS ORDERED: FERR325T24 PO (10:22)
--- NOTE | 2018-06-16 10:23 | OB/GYN Discharge Summary ---
Discharge Summary Reason for Hosp/Final Diag: (1) 40 weeks gestation of (2) state Hospital Course & Plan: Doing well . Discharge home today, follow-up in the office in 6 weeks. Sooner as needed. Lates Vital Signs Vital Signs Date Time Temp Pulse Resp B/P (MAP) Pulse Ox O2 Delivery O2 Flow Rate FiO2 06/16/18 09:35 98.5 79 16 130/89 (103) 94 Room Air Weight (Pounds): 267 Result Diagram: 06/15/18 0651 Condition: Improved Discharge: Home, Self Prison Meds Reported Medications Omeprazole Magnesium (PRILOSEC OTC) 20 Mg Tablet.dr, 1 TAB PO QDAY, TAB 06/13/18 Vits W-Ca,Fe,Fa(<1MG) ( VITAMINS) 1 Each Tablet, 1 EACH PO DAILY, TAB 10/26/17 Ranitidine Hcl (ZANTAC) 150 Mg Tablet, 150 MG PO BID, TAB 08/13/17 Discontinued Reported Medications Pyridoxine HCl (Vitamin B6) (B-6) 200 Mg Tablet.er 10/26/17 Doxylamine Succinate (Unisom) 25 Mg Tablet 10/26/17 Discontinued Scripts Nitrofurantoin Monohyd/M-Cryst (MACROBID 100 MG CAPSULE) 100 Mg Capsule, 100 MG PO BID for 7 Days, #14 CAPSULE Prov:SAMIRA TERAN MD 10/26/17 [facility] [phone], Dr. Silverman [phone] Follow up in: 6 wks PP or PO Discharge Diet: As Tolerates Discharge Activity: As Tolerates JEMMA VARELA Jun 16, 2018 10:23
[2018-06-16 12:35] VITALS: BP 139/78
[2018-06-16] MEDS: APAP/HYDROCODONE 325/5 TAB PO PRN (13:41)
[2018-06-16] MEDS: BENZOCAINE 20% 60 ML BTL TP PRN (13:51)
== END 2018-06-16 14:30 | disposition home or self-care (01) | DRG 807 ==
LOC: OB 06-13 19:26 → PED 06-15 14:45
PROVIDERS: ADMIT Obstetrics & Gynecology; ATTEND Obstetrics & Gynecology
PROC: 10E0XZZ Delivery of Products of Conception, External Approach (ICD-10-PCS; principal; 2018-06-14)
PROC: 10907ZC Drainage of Amniotic Fluid, Therapeutic from Products of Conception, Via Natural or Artificial Opening (ICD-10-PCS; 2018-06-14)
PROC: 0HQ9XZZ Repair Perineum Skin, External Approach (ICD-10-PCS; 2018-06-14)
PROC: 3E0P7VZ Introduction of Hormone into Female Reproductive, Via Natural or Artificial Opening (ICD-10-PCS; 2018-06-14)
DX: O48.0 Post-term pregnancy (principal); Z37.0 Single live birth; Z3A.40 40 weeks gestation of pregnancy; O70.0 First degree perineal laceration during delivery; O99.214 Obesity complicating childbirth; E66.9 Obesity, unspecified; O99.02 Anemia complicating childbirth; Z23 Encounter for immunization
CPT/HCPCS: 36415; 85025; 85027; 86703; 86850; 86900; 86901; 90707; J2405; J2590; J3010; J3490; J7120; S0020